=== PATIENT | male | born 1955 | race Caucasian/White ===

== ENCOUNTER → 2018-04-26 | Outpatient (CLI) | payer OTHER ==
[2015-12-26 13:14] VITALS: BMI 27.2
[~2018-04-26] MED LIST: ANDROGEL; ASPI81TA86 PO; CETI10CA8 PO; CLON-333 PO; ENO40I SQ; GLUC-178 PO; IRO150 PO; LAM100; LAMICTAL; LAMO200T45 PO; LEVO75TA73 PO; LOR7.5/325 PO; MOD100; OXY10 PO; PROVIGIL; QUE25; QUET400T PO; SEROQUEL; TES5T TOP; TEST2.5G6; VITA-134 PO; WARF-12 PO; ZYRTEC; [UNRECOGNIZED DRUG - OTHER]
== END ==
LOC: AUD 12:50
PROVIDERS: ATTEND Nurse Practitioner Family
DX: H91.93 Unspecified hearing loss, bilateral (principal)
CPT/HCPCS: 92557

== ENCOUNTER → 2018-05-10 | Outpatient (CLI) | payer SELFPAY ==
[2015-12-26 13:14] VITALS: BMI 27.2
== END ==
LOC: AUD 08:00
PROVIDERS: ATTEND Nurse Practitioner Family
DX: Z46.1 Encounter for fitting and adjustment of hearing aid (principal)
CPT/HCPCS: 92591; V5261

== ENCOUNTER → 2018-07-19 | Outpatient (CLI) | payer OTHER ==
[2015-12-26 13:14] VITALS: BMI 27.2
== END ==
LOC: AUD 12:15
PROVIDERS: ATTEND Nurse Practitioner Family
DX: Z02.9 Encounter for administrative examinations, unspecified (principal)
CPT/HCPCS: V5261